=== PATIENT | female | born 1960 | race Caucasian/White ===

== ENCOUNTER 2021-06-09 10:29 | Emergency (ER) | payer OTHER ==
[~2021-06-09] VITALS: Ht 162.6 cm; Wt 64.9 kg
[2021-06-09] MEDS ORDERED: METFORMIN HCL500 M3 PO (10:46)
[2021-06-09] MEDS ORDERED: ORTHO DF 3,7751 EACH PO (10:47)
[2021-06-09] MEDS ORDERED: CRESTOR40 MG PO (10:47)
[2021-06-09] MEDS ORDERED: EVISTA60 MG PO (10:47)
== END 2021-06-09 13:58 | disposition home or self-care (01) ==
LOC: ER 10:29
DX: M54.5 Low back pain (principal); W18.30XA Fall on same level, unspecified, initial encounter; Y93.89 Activity, other specified; Y92.019 Unspecified place in single-family (private) house as the place of occurrence of the external cause

== ENCOUNTER 2023-06-09 07:51 | Outpatient (CLI) | payer OTHER ==
[~2023-06-09 07:51] MED LIST: CRESTOR40 MG PO; EVISTA60 MG PO; METFORMIN HCL500 M3 PO; ORTHO DF 3,7751 EACH PO
== END 2023-06-09 07:54 | disposition home or self-care (01) ==
LOC: SONOGRAMA 07:51
PROVIDERS: ATTEND Pathology Anatomic Pathology & Clinical Pathology
DX: D34 Benign neoplasm of thyroid gland (principal); E04.9 Nontoxic goiter, unspecified